=== PATIENT | male | born 1960 ===

== ENCOUNTER 2016-11-20 07:21 | Day surgery (SDC) | payer OTHER ==
[2016-11-20] MEDS ORDERED: PROPARACAINE 0.5% OPHTH DROPS 15 ML OPTH ONE ×2 (07:40→08:25)
[2016-11-20] MEDS ORDERED: KETOROLAC 0.45% OPHTH DROPS OPTH ONE (07:40)
[2016-11-20] MEDS ORDERED: PHENYLEPHRINE 2.5% OPHTH 2 ML DROPS OPTH ONE (07:40)
[2016-11-20] MEDS ORDERED: CYCLOPENTOLATE 1% OPHTH DROPS 2 ML OPTH ONE (07:40)
[2016-11-20] MEDS ORDERED: LACTATED RINGERS 500 ML IV ONE (07:53)
[2016-11-20] MEDS ORDERED: MIDAZOLAM 2 MG/2 ML VIAL IVP ONE (08:24)
[2016-11-20] MEDS ORDERED: TIMOLOL 0.5% OPHTH DROPS OPTH ONE (08:25)
[2016-11-20] MEDS ORDERED: BRIMONIDINE 0.2% OPHTH DROPS 5 ML OPTH ONE (08:25)
[2016-11-20] MEDS ORDERED: BSS/LIDOCAINE/EPINEPHRINE 1 ML SYRINGE IO ONE ×2 (08:25)
[2016-11-20] MEDS ORDERED: TRIAMCIN/MOXIFLOX/VANCO 1 ML VIAL IO ONE ×2 (08:25)
[2016-11-20] MEDS ORDERED: EPINEPHrine 1 MG/ML AMP IVP ONE (08:25)
[2016-11-20] MEDS ORDERED: CHONDR SULF/HYALURONATE SYRINGE IO ONE (08:25)
[2016-11-20 08:48] VITALS: BP 112/73
--- NOTE | 2016-11-20 14:21 | OPERATIVE REPORT ---
DATE OF SURGERY: 11/20/2016 00:00:00 PREOPERATIVE DIAGNOSIS: Visually significant cataract, left eye. This was his first cataract surgery. POSTOPERATIVE DIAGNOSIS: Visually significant cataract, left eye. This was his first cataract surgery . NAME OF PROCEDURE: Phacoemulsification posterior chamber intraocular lens implant, left eye, with las er assist. SURGEON: German Pack MD. ANESTHESIA: Monitored anesthesia care. COMPLICATIONS: None. OPERATIVE INDICATIONS: This is a 56-year-old man with progressive vision loss in the left eye due to a 2 to 3+ nuclear sclerotic cataract. Best corrected visual acuity was 20/30 with glare to 20/70 in t he left eye. INDICATIONS FOR SURGERY: Overall decrease in vision, difficulty seeing words on a computer screen, di fficulty reading, difficulty seeing words or close captions or game scores on TV, difficulty seeing s treet signs, difficulty driving in low light or at night, difficulty driving at night because of head lights from other vehicles, and difficulty with glare or bright lights in any situation. He was conse nted at length concerning the risks and benefits of cataract surgery, after which he expressed a dillon re to proceed with surgery. OPERATIVE PROCEDURE: The patient was taken to OR #2 and placed under monitored anesthesia care. A noel gical time-out was conducted confirming the correct patient, correct procedure and correct surgical s ite. He was placed in the LenSx laser and his eye docked to the laser interface. The laser performed the capsulotomy, lens softening, phaco wounds, and arcuate keratotomy incisions. We then moved to the operating microscope, given topical anesthesia, and then prepped and draped in the usual sterile fas hion. The eye was entered at the 6- and 3 o'clock positions. Intracameral Shugarcaine was injected in to the anterior chamber, followed by Viscoat. Capsulorrhexis flap created by the LenSx laser was willy seamus from the anterior chamber. The nucleus was hydrodissected and phacoemulsified. The cortex was andreina cuated using automated infusion aspiration. Provisc was injected into the capsular bag and a 13.5 finesse pter intraocular lens was inserted into the bag. Approximately 0.8 mL of a mixture of triamcinolone, moxifloxacin, and vancomycin was injected subconjunctivally in the superior quadrant for infection an d inflammation prophylaxis. I/A was used to evacuate the viscoelastic materials. The eye was inflated to a physiologic pressure using balanced salt solution and found to be watertight. The patient was carson johnston from the operating room in good condition and given postoperative instructions. JOB #: [id number] EXT JOB #:[id number]
== END 2016-11-20 07:22 | disposition home or self-care (01) ==
LOC: SDS 07:21
PROVIDERS: ATTEND Ophthalmology
PROC: 08RK3JZ Replacement of Left Lens with Synthetic Substitute, Percutaneous Approach (ICD-10-PCS; principal; 2016-11-20 08:30)
DX: H25.12 Age-related nuclear cataract, left eye (principal); E11.9 Type 2 diabetes mellitus without complications; J30.2 Other seasonal allergic rhinitis; E66.9 Obesity, unspecified; Z68.30 Body mass index [BMI] 30.0-30.9, adult
CPT/HCPCS: 66984; A9270; V2632

== ENCOUNTER 2016-12-18 08:46 | Day surgery (SDC) | payer OTHER ==
[~2016-12-18 08:46] MED LIST: PHENYLEPHRINE 2.5% OPHTH 2 ML DROPS ONE
[2016-12-18] MEDS ORDERED: KETOROLAC 0.45% OPHTH DROPS OPTH ONE (09:05)
[2016-12-18] MEDS ORDERED: CYCLOPENTOLATE 1% OPHTH DROPS 2 ML OPTH ONE (09:05)
[2016-12-18] MEDS ORDERED: PROPARACAINE 0.5% OPHTH DROPS 15 ML OPTH ONE ×2 (09:05→09:49)
[2016-12-18] MEDS ORDERED: PHENYLEPHRINE 2.5% OPHTH 2 ML DROPS OPTH ONE (09:05)
[2016-12-18] MEDS ORDERED: LACTATED RINGERS 500 ML IV ONE (09:13)
[2016-12-18] MEDS ORDERED: BRIMONIDINE 0.2% OPHTH DROPS 5 ML OPTH ONE (09:48)
[2016-12-18] MEDS ORDERED: CHONDR SULF/HYALURONATE SYRINGE IO ONE (09:48)
[2016-12-18] MEDS ORDERED: EPINEPHrine 1 MG/ML AMP IVP ONE (09:48)
[2016-12-18] MEDS ORDERED: BSS/LIDOCAINE/EPINEPHRINE 1 ML SYRINGE IO ONE ×2 (09:49)
[2016-12-18] MEDS ORDERED: TIMOLOL 0.5% OPHTH DROPS OPTH ONE (09:49)
[2016-12-18] MEDS ORDERED: TRIAMCIN/MOXIFLOX/VANCO 1 ML VIAL IO ONE ×2 (09:49)
[2016-12-18] MEDS ORDERED: LIDOCAINE-MPF 2% 5 ML VIAL IM ONE (10:00)
[2016-12-18] MEDS ORDERED: MIDAZOLAM 2 MG/2 ML VIAL IVP ONE (10:00)
[2016-12-18] MEDS ORDERED: PROPOFOL 200 MG/20 ML VIAL IVP ONE (10:00)
[2016-12-18 10:19] VITALS: BP 109/74
--- NOTE | 2016-12-18 12:04 | OPERATIVE REPORT ---
DATE OF SURGERY: 12/18/2016 00:00:00 PREOPERATIVE DIAGNOSIS: Visually significant cataract, right eye. Cataract surgery was performed on t he left eye on 20 Nov 2016. POSTOPERATIVE DIAGNOSIS: Visually significant cataract, right eye. Cataract surgery was performed on the left eye on 20 Nov 2016. NAME OF PROCEDURE: Phacoemulsification with posterior chamber intraocular lens implant, right eye. SURGEON: German Pack MD ANESTHESIA: Monitored anesthesia care. COMPLICATIONS: None. OPERATIVE INDICATIONS: This is a 56-year-old man with progressive vision loss in the right eye due to 2+ nuclear sclerotic cataract. Best corrected visual acuity was 20/20 with glare to 20/50 in the rig ht eye. Indications for surgery were overall decrease in vision, difficulty seeing words on a compute r screen, difficulty reading, difficulty seeing words and game scores on TV, difficulty seeing street signs, difficulty driving in low light or at night, difficulty driving at night because of headlight s from other vehicles, and difficulty with glare and bright lights in any situation. He was consented at length concerning the risks and benefits of cataract surgery after which he expressed a desire to proceed with surgery. OPERATIVE PROCEDURE: The patient was taken into OR #2 and placed under monitored anesthesia care. A s urgical time-out was conducted confirming correct patient, correct procedure and correct surgical sit e. He was placed under the LenSx laser and his eye docked to the laser interface. The laser performed the capsulotomy, lens softening, phaco wounds, and arcuate keratotomy incisions. He was then moved t o the operating microscope, given topical anesthesia, and then prepped and draped in the usual steril e fashion. The eye was entered at the 12 and 9 o'clock positions. Intracameral Shugarcaine was inject ed into the anterior chamber, followed by Viscoat. Capsulorrhexis flap was created by LenSx laser was removed from the anterior chamber. The nucleus was hydrodissected and phacoemulsified. Cortex was ev acuated using automated infusion aspiration. Provisc was injected into the capsular bag and a 13.5 di opter intraocular lens was inserted into the bag. Approximately 0.8 mL of a mixture of triamcinolone, moxifloxacin, and vancomycin was injected subconjunctivally in the superior quadrant for infection a nd inflammation prophylaxis. I/A was used to evacuate the viscoelastic materials. The eye was inflate d to physiologic pressure using balanced salt solution and found to be watertight. The patient was zari childress from the operating room in good condition and given postoperative instructions. JOB #: [id number] EXT JOB #:[id number]
== END 2016-12-18 08:47 | disposition home or self-care (01) ==
LOC: SDS 08:46
PROVIDERS: ATTEND Ophthalmology
PROC: 08RJ3JZ Replacement of Right Lens with Synthetic Substitute, Percutaneous Approach (ICD-10-PCS; principal; 2016-12-18 09:30)
DX: H25.11 Age-related nuclear cataract, right eye (principal); E11.9 Type 2 diabetes mellitus without complications
CPT/HCPCS: 66984; A9270; V2632